=== PATIENT | male | born 1975 | race Caucasian/White ===

== ENCOUNTER 2019-03-02 11:37 | Emergency (ER) | payer OTHER ==
[~2019-03-02] VITALS: Ht 193 cm; Wt 117.9 kg
[~2019-03-02 11:37] MED LIST: BENADRYL25 MG PO; IBUPROFEN 200200 M1 PO; KEFLEX500 MG PO; NORCO 5-325 TA1 EACH PO; [UNRECOGNIZED DRUG - OTHER] PO
[2019-03-02] MEDS ORDERED: OMEPRAZOLE40 MG PO (11:46)
[2019-03-02] MEDS ORDERED: MOBIC15 MG PO (12:21)
[2019-03-02 13:43] VITALS: BP 142/95
== END 2019-03-02 13:47 | disposition home or self-care (01) ==
LOC: ER 11:37
DX: M77.9 Enthesopathy, unspecified (principal); Z88.2 Allergy status to sulfonamides

== ENCOUNTER → 2020-03-19 | Outpatient (CLI) | payer BC, OTHER ==
[~2020-03-19] MED LIST changes: +MOBIC15 MG PO; +OMEPRAZOLE40 MG PO
== END ==
LOC: LAB 09:10
PROVIDERS: ATTEND Family Medicine
DX: R06.02 Shortness of breath (principal); Z20.822 Contact with and (suspected) exposure to COVID-19